=== PATIENT | female | born 1985 | race Caucasian/White ===

== ENCOUNTER 2020-09-17 08:00 | Day surgery (SDC) | payer OTHER ==
[2020-09-15 15:26] VITALS: BMI 31.5
[~2020-09-17 08:00] MED LIST: LACTATED RINGERS 1,000 ML IV SCH
[2020-09-17] MEDS ORDERED: LIDOCAINE 1% (10MG/ML) FOR IV START INTRADERMA ONE (08:58)
[2020-09-17] MEDS ORDERED: LIDOCAINE 1% INJ 10MG/ML (20 ML MDV) ONE (09:00)
[2020-09-17] MEDS ORDERED: PROPOFOL 10 MG/ML 20 ML VIAL IV ONE (09:00)
[2020-09-17 09:03] VITALS: TEMP 98.8
--- NOTE | 2020-09-17 09:32 | P.PCN ---
Date of Procedure: 09/17/20 Description of Procedure: BRIEF HISTORY: Patient is a 34-year-old female presenting for colonoscopy for evaluation of history of ulcerative colitis. She reports diagnosis of ulcerative colitis at the age of 18. She reports previously being treated with Remicade. She states she was unable to tolerate the medication due to abdominal pain. She reports over the past 10 years she has been off of any medications and states that she has been doing okay with no altered bowel movements blood per rectum or any other symptoms. PROCEDURE PERFORMED: Colonoscopy with biopsy. PREOPERATIVE DIAGNOSIS: History of ulcerative colitis. ESTIMATED BLOOD LOSS: Minimal. IV sedation per Anesthesia. PROCEDURE: After informed consent was obtained, the patient, was brought into the endoscopy unit. IV sedation was administered by Anesthesia under continuous monitoring. Digital rectal examination was normal. Initially the Olympus CF-190 flexible video colonoscope was then inserted in the rectum, gradually advanced into the cecum without any difficulty. Careful examination was performed as the scope was gradually being withdrawn. Ileocecal valve and the appendiceal orifice were visualized and appeared normal. Prep was excellent. Mucosa of the cecum, ascending colon, transverse colon, descending colon, sigmoid colon, and rectum appeared normal except for some mild scattered erythema throughout the colon consistent with mild ulcerative colitis with biopsies taken of the cecum, ascending colon, transverse colon, descending colon, sigmoid colon and rectum. The terminal ileum appeared normal with biopsies taken. Retroflexion was performed in the rectum and no lesions were seen. The patient tolerated the procedure well. IMPRESSION: Normal-appearing colon from rectum to cecum in normal-appearing terminal ileum, with only mild scattered erythema throughout the colon with random biopsies taken of the terminal ileum, cecum, ascending colon, transverse colon, descending colon, sigmoid colon and rectum. RECOMMENDATIONS: Findings of this examination were discussed with the patient and her family. Okay to resume diet. Okay to resume medications. Await pathology from biopsies. Follow up in the GI clinic as scheduled for further management.
[2020-09-17 09:39] VITALS: RESP 16
[2020-09-17 09:49] VITALS: BP 100/67; PULSE 67
== END 2020-09-17 10:05 | disposition home or self-care (01) ==
LOC: ORWHC2ENDO 08:00
PROVIDERS: ATTEND Internal Medicine
DX: K51.90 Ulcerative colitis, unspecified, without complications (principal); Z87.19 Personal history of other diseases of the digestive system
CPT/HCPCS: 81025; 88305; 45380; J2001; J2704

== ENCOUNTER → 2022-03-17 | Outpatient (CLI) | payer OTHER ==
[2022-03-17 15:25] LABS: Basophils # (A) 0.07 X 10*3/uL (0.00-0.10); Basophils % (A) 0.6 %; Eosinophils # (A) 0.18 X 10*3/uL (0.04-0.35); Eosinophils % (A) 1.5 %; HCT 35.3 % (37.2-46.3); HGB 11.3 g/dL (12.0-15.0); Immature Grans, Automated 0.9 %; Lymphocytes # (A) 1.77 X 10*3/uL (0.90-5.00); Lymphocytes % (A) 15.1 %; MCH 28.5 pg (27.0-32.0); MCV 89.1 fL (80.0-97.0); Mean Platelet Volume 10.1 fL (9.5-12.2); Monocytes # (A) 1.05 X 10*3/uL (0.20-1.00); NRBC Per 100 WBC 0 /100 WBCS (0.0-0.0); Neutrophils # (A) 8.54 X 10*3/uL (1.80-7.70); Neutrophils % (A) 72.9 %; Platelet Count 473 X 10*3/uL (140-440); RBC 3.96 X 10*6/uL (4.10-5.20); WBC 11.72 X 10*3/uL (4.50-10.00)
[2022-03-17 16:07] LABS: ALT 26 U/L (8-44); AST 18 U/L (13-35); African American GFR (CKD) 127.5 (60.0-200.0); Albumin 3.9 g/dL (3.8-4.9); Albumin/Globulin Ratio 1.55 (1.60-3.17); Alkaline Phosphatase 78 U/L (41-126); BUN/Creat Ratio 12.82 Ratio (12.00-20.00); Blood Urea Nitrogen 9.1 mg/dL (9.0-27.0); Calcium 8.8 mg/dL (8.7-10.3); Carbon Dioxide 25.3 mmol/L (20.0-27.5); Chloride 101 mmol/L (96-109); Globulin 2.5 g/dL (1.6-3.3); Glucose 125 mg/dL (70-110); Potassium 3.8 mmol/L (3.5-5.5); Sodium 140 mmol/L (135-145); Total Bilirubin <0.15 mg/dL (0.30-1.20); Total Protein 6.4 g/dL (6.2-8.2)
[2022-03-18 01:55] LABS: Erythrocyte Sedimentation Rate 39 mm/Hr (0-20)
== END | disposition home or self-care (01) ==
LOC: LABWHC1 10:30
PROVIDERS: ATTEND Internal Medicine Gastroenterology
DX: K51.90 Ulcerative colitis, unspecified, without complications (principal)
CPT/HCPCS: 36415; 80053; 85025; 85652; 86140

== ENCOUNTER 2022-03-19 02:50 | Emergency (ER) | payer OTHER ==
[2022-03-19 03:04] VITALS: TEMP 98.9
[2022-03-19] MEDS ORDERED: ONDANSETRON 4 MG/2 ML VIAL IVP STA (03:12)
[2022-03-19] MEDS ORDERED: SODIUM CHLORIDE 0.9% 1,000 ML IV STA (03:12)
[2022-03-19] MEDS ORDERED: MORPHINE SULFATE 4 MG/ML SYRINGE IVP STA (03:13)
--- NOTE | 2022-03-19 03:21 | ED ---
Abdominal Pain HPI - General Source: patient, RN notes reviewed Mode of arrival: ambulatory <Kailey Marie - Last Filed: 03/19/22 03:38> <Reji Garcia - Last Filed: 03/19/22 04:55> - General Chief Complaint: Abdominal Pain Stated Complaint: abd pain Time Seen by Provider: 03/19/22 03:06 - History of Present Illness Initial Comments: Patient is a 36-year-old female presenting to the emergency room with complaints of severe abdominal pain ongoing for approximately 2 weeks. She was recently seen by Dr. Keating who ordered blood work which she had completed on March 17 and placed her on steroids along with oral aminosalicylate. She reports no improvement in her symptoms on the oral medication treatment and rep orts that she is having nausea and vomiting with the inability to keep food or fluids down at this point. She reports chronic diarrhea with blood in her stool which is not new for her. She notes hot and cold flashes at times. She denies any hematemesis, chest pain, shortness of breath, dysuria, or urinary frequency. She denies any other significant past medical history with the exception of her ulcerative colitis. (Kailey Marie) - Related Data Home Medications Medication Instructions Recorded Confirmed Cholecalciferol [Vitamin D3 (25 50 mcg PO DAILY 09/15/20 09/15/20 Mcg = 1000 Iu)] Ferrous Sulfate [Feosol] 325 mg PO DAILY 09/15/20 09/15/20 Allergies Allergy/AdvReac Type Severity Reaction Status Date / Time amoxicillin trihydrate Allergy Unknown Verified 03/19/22 03:04 [From Augmentin] potassium clavulanate Allergy Unknown Verified 03/19/22 03:04 [From Augmentin] sulfamethoxazole Allergy Unknown Verified 03/19/22 03:04 [From Bactrim] trimethoprim [From Bactrim] Allergy Unknown Verified 03/19/22 03:04 Review of Systems ROS Other: All systems not noted in ROS Statement are negative. <Kailey Marie - Last Filed: 03/19/22 03:38> ROS Other: All systems not noted in ROS Statement are negative. <Reji Garcia - Last Filed: 03/19/22 04:55> ROS Statement: Those systems with pertinent positive or pertinent negative responses have been documented in the HPI. Past Medical History Additional Past Medical History / Comment(s): ULCERATIVE COLITIS History of Any Multi-Drug Resistant Organisms: None Reported Past Surgical History: Section, Ear Surgery, Tubal Ligation Additional Past Surgical History / Comment(s): colonoscopy Past Anesthesia/Blood Transfusion Reactions: No Reported Reaction Past Psychological History: Anxiety Smoking Status: Never smoker Past Alcohol Use History: None Reported Past Drug Use History: None Reported <Kailey Marie - Last Filed: 03/19/22 03:38> General Exam Limitations: no limitations <Kailey Marie - Last Filed: 03/19/22 03:38> General appearance: alert, in no apparent distress Head exam: Present: atraumatic, normocephalic, normal inspection Eye exam: Present: normal appearance, PERRL, EOMI. Absent: scleral icterus, conjunctival injection, periorbital swelling ENT exam: Present: normal exam, mucous membranes moist Neck exam: Present: normal inspection. Absent: tenderness, meningismus, lymphadenopathy Respiratory exam: Present: normal lung sounds bilaterally. Absent: respiratory distress, wheezes, rales, rhonchi, stridor Cardiovascular Exam: Present: regular rate, normal rhythm, normal heart sounds. Absent: systolic murmur, diastolic murmur, rubs, gallop, clicks GI/Abdominal exam: Present: soft, normal bowel sounds. Absent: distended, tend erness, guarding, rebound, rigid Extremities exam: Present: normal inspection, full ROM, normal capillary refill. Absent: tenderness, pedal edema, joint swelling, calf tenderness Back exam: Present: normal inspection Neurological exam: Present: alert, oriented X3, CN II-XII intact Psychiatric exam: Present: normal affect, normal mood Skin exam: Present: warm, dry, intact, normal color. Absent: rash <Reji Garcia - Last Filed: 03/19/22 04:55> - General Exam Comments Initial Comments: GENERAL: No acute distress, well developed, well nourished. In pain. HEENT: Normocephalic, atraumatic. Pupils equal, round, reactive to light. Moist mucous membranes. LUNGS: No respiratory distress. Clear to auscultation, no adventitious sounds, no use of accessory muscles. HEART: Regular rate and rhythm without murmur, rub, or gallop. ABDOMEN: Normal bowel sounds. Soft, nondistended, diffuse tenderness. : Urine concentrated. EXTREMITIES: No edema. No tenderness. Moves all extremities. NEUROLOGIC: Alert & oriented x 3. CN II-XII grossly intact. PSYCHIATRIC: Normal affect and behavior. DERMATOLOGIC: Skin intact, without rashes or lesions noted. (Kailey Marie) Course <Reji Garcia - Last Filed: 03/19/22 04:55> Vital Signs 03/19/22 03:01 Temperature 98.9 F Pulse Rate 93 Respiratory 18 Rate Blood Pressure 128/87 O2 Sat by Pulse 98 Oximetry - Reevaluation(s) Reevaluation #1: 03/19/22 04:54 Medical record is reviewed (Reji Garcia) Reevaluation #2: 03/19/22 04:54 Patient informed results and questions answered (Reji Garcia) Reevaluation #3: 03/19/22 04:54 Patient has adequate pain control (Reji Garcia) Medical Decision Making <Kailey Marie - Last Filed: 03/19/22 03:38> - Lab Data Result diagrams: 03/19/22 03:18 03/19/22 03:18 - Radiology Data Radiology results: report reviewed (CT of the abdomen and pelvis shows nonspecific colitis negative for acute disease), image reviewed <Reji Garcia - Last Filed: 03/19/22 04:55> - Medical Decision Making Was pt. sent in by a medical professional or institution (, PA, PRINTING MACHINE OPERATOR, urgent care, hospital, or long-term...) When possible be specific @ -No Did you speak to anyone other than the patient for history (EMS, parent, family, police, friend...)? What history was obtained from this source @ -No Did you review nursing and triage notes (agree or disagree)? Why? @ -I reviewed and agree with nursing and triage notes Were old charts reviewed (outside hosp., previous admission, EMS record, old EKG, old radiological studies, urgent care reports/EKG's, long-term records)? Report findings @ -Laboratory studies ordered by Dr. Keating resulted on 03/17/2021 Differential Diagnosis (chest pain, altered mental status, abdominal pain women, abdominal pain men, vaginal bleeding, weakness, fever, dyspnea, syncope, headache, dizziness, GI bleed, back pain, seizure, CVA, palpatations, mental health)? @ -Differential Abdominal Pain Women: Appendicitis, Cholecystitis, diverticulosis, ischemic bowel, pancreatitis, hepatitis, UTI, gastroenteritis, AAA, incarcerated hernia, bowel obstruction, constipation, inflammatory bowel, hepatitis, peptic ulcer disease, splenic infarction, perforated viscus, vulvitis, ovarian torsion, PID, kidney stone, placenta abruption, this is not meant to be an all-inclusive list EKG interpreted by me (3pts min.). @ -None done X-rays interpreted by me (1pt min.). @ -None done CT interpreted by me (1pt min.). @ - U/S interpreted by me (1pt. min.). @ -None done What testing was considered but not performed or refused? (CT, X-rays, U/S, labs)? Why? @ -None What meds were considered but not given or refused? Why? @ -None Did you discuss the management of the patient with other professionals (christo murray i.eNuria Verde, PA, PRINTING MACHINE OPERATOR, lab, RT, psych nurse, social media executive, anodic operator, teacher, flight communications officer, showcase maker)? Give summary @ -No Was smoking cessation discussed for >3mins.? @ -No Was critical care preformed (if so, how long)? @ -No Were there social determinants of health that impacted care today? How? (Homelessness, low income, unemployed, alcoholism, drug addiction, transportati on, low edu. Level, literacy, decrease access to med. care, nursing home, rehab)? @ -No Was there de-escalation of care discussed even if they declined (Discuss DNR or withdrawal of care, Hospice)? DNR status @ -No What co-morbidities impacted this encounter? (DM, HTN, Smoking, COPD, CAD, Cancer, CVA, ARF, Chemo, Hep., AIDS, mental health diagnosis, sleep apnea, morbid obesity)? @ -Ulcerative colitis Was patient admitted / discharged? Hospital course, mention meds given and route, prescriptions, significant lab abnormalities, going to OR and other pertinent info. @ -36-year-old female with diffuse abdominal pain with nausea vomiting diarrhea and bloody stools with history of ulcerative colitis currently on steroid treatment. Recent laboratory studies on 03/17/2021 reviewed. Will repeat CMP and CBC. No recent imaging completed will obtain CT of the abdomen. Will give IV hydration, morphine for pain and Zofran for nausea and monitor response. Case discussed with him transferred to Dr. Bearden for further evaluation, treatment and disposition. Undiagnosed new problem with uncertain prognosis? @ -Abdominal pain, nausea and vomiting workup still pending as above. Drug Therapy requiring intensive monitoring for toxicity (Heparin, Nitro, Insulin, Cardizem)? @ -No Were any procedures done? @ -No (Kailey Marie) 36 female DF for evaluation patient presents with abdominal pain history of Crohn's and Crohn's colitis. Patient at this time has adequate pain control can be discharged home (Reji Garcia) - Lab Data Lab Results 03/19/22 03/19/22 03/19/22 Range/Units 03:18 03:18 03:18 WBC 12.1 H (3.8-10.6) k/uL RBC 4.22 (3.80-5.40) m/uL Hgb 11.8 (11.4-16.0) gm/dL Hct 36.7 (34.0-46.0) % MCV 87.0 (80.0-100.0) fL MCH 28.0 (25.0-35.0) pg MCHC 32.2 (31.0-37.0) g/dL RDW 14.1 (11.5-15.5) % Plt Count 396 (150-450) k/uL MPV 7.9 Neutrophils % 69 % Lymphocytes % 18 % Monocytes % 9 % Eosinophils % 1 % Basophils % 1 % Neutrophils # 8.3 H (1.3-7.7) k/uL Lymphocytes # 2.1 (1.0-4.8) k/uL Monocytes # 1.1 H (0-1.0) k/uL Eosinophils # 0.1 (0-0.7) k/uL Basophils # 0.1 (0-0.2) k/uL Sodium (137-145) mmol/L Potassium (3.5-5.1) mmol/L Chloride (98-107) mmol/L Carbon Dioxide (22-30) mmol/L Anion Gap mmol/L BUN (7-17) mg/dL Creatinine (0.52-1.04) mg/dL Est GFR (CKD-EPI)AfAm (>60 ml/min/1.73 sqM) Est GFR (CKD-EPI)NonAf (>60 ml/min/1.73 sqM) Glucose (74-99) mg/dL Plasma Lactic Acid Asif (0.7-2.0) mmol/L Calcium (8.4-10.2) mg/dL Total Bilirubin (0.2-1.3) mg/dL AST (14-36) U/L ALT (4-34) U/L Alkaline Phosphatase (38-126) U/L Total Protein (6.3-8.2) g/dL Albumin (3.5-5.0) g/dL Amylase (30-110) U/L Lipase (23-300) U/L Urine Color Dark Brown Urine Appearance Cloudy H (Clear) Urine pH 6.0 (5.0-8.0) Ur Specific Nenzel 1.028 (1.001-1.035) Urine Protein 1+ H (Negative) Urine Glucose (UA) Negative (Negative) Urine Ketones 2+ H (Negative) Urine Blood Large H (Negative) Urine Nitrite Negative (Negative) Urine Bilirubin Negative (Negative) Urine Urobilinogen <2.0 (<2.0) mg/dL Ur Leukocyte Esterase Trace H (Negative) Urine RBC >182 H (0-5) /hpf Urine WBC 7 H (0-5) /hpf Ur Squamous Epith Cells 6 H (0-4) /hpf Urine Mucus Many H (None) /hpf Urine HCG, Qual Not Detected (Not Detectd) 03/19/22 03/19/22 Range/Units 03:18 03:18 WBC (3.8-10.6) k/uL RBC (3.80-5.40) m/uL Hgb (11.4-16.0) gm/dL Hct (34.0-46.0) % MCV (80.0-100.0) fL MCH (25.0-35.0) pg MCHC (31.0-37.0) g/dL RDW (11.5-15.5) % Plt Count (150-450) k/uL MPV Neutrophils % % Lymphocytes % % Monocytes % % Eosinophils % % Basophils % % Neutrophils # (1.3-7.7) k/uL Lymphocytes # (1.0-4.8) k/uL Monocytes # (0-1.0) k/uL Eosinophils # (0-0.7) k/uL Basophils # (0-0.2) k/uL Sodium 139 (137-145) mmol/L Potassium 3.5 (3.5-5.1) mmol/L Chloride 103 (98-107) mmol/L Carbon Dioxide 29 (22-30) mmol/L Anion Gap 7 mmol/L BUN 9 (7-17) mg/dL Creatinine 0.64 (0.52-1.04) mg/dL Est GFR (CKD-EPI)AfAm >90 (>60 ml/min/1.73 sqM) Est GFR (CKD-EPI)NonAf >90 (>60 ml/min/1.73 sqM) Glucose 104 H (74-99) mg/dL Plasma Lactic Acid Asif 1.0 (0.7-2.0) mmol/L Calcium 8.4 (8.4-10.2) mg/dL Total Bilirubin 0.3 (0.2-1.3) mg/dL AST 20 (14-36) U/L ALT 22 (4-34) U/L Alkaline Phosphatase 86 (38-126) U/L Total Protein 7.1 (6.3-8.2) g/dL Albumin 3.9 (3.5-5.0) g/dL Amylase 37 (30-110) U/L Lipase 15 L (23-300) U/L Urine Color Urine Appearance (Clear) Urine pH (5.0-8.0) Ur Specific Nenzel (1.001-1.035) Urine Protein (Negative) Urine Glucose (UA) (Negative) Urine Ketones (Negative) Urine Blood (Negative) Urine Nitrite (Negative) Urine Bilirubin (Negative) Urine Urobilinogen (<2.0) mg/dL Ur Leukocyte Esterase (Negative) Urine RBC (0-5) /hpf Urine WBC (0-5) /hpf Ur Squamous Epith Cells (0-4) /hpf Urine Mucus (None) /hpf Urine HCG, Qual (Not Detectd) Disposition <Kailey Marie - Last Filed: 03/19/22 03:38> Is patient prescribed a controlled substance at d/c from ED?: No Time of Disposition: 04:55 <Reji Garcia - Last Filed: 03/19/22 04:55> Clinical Impression: Abdominal pain, Colitis Disposition: HOME SELF-CARE Condition: Good Instructions (If sedation given, give patient instructions): Abdominal Pain (ED) Referrals: Gianna Romero DO [Primary Care Provider] - 1-2 days
[2022-03-19 03:43] LABS: ALT 22 U/L (4-34); AST 20 U/L (14-36); African American GFR (CKD) >90 (>60 ml/min/1.73 sqM); Albumin 3.9 g/dL (3.5-5.0); Alkaline Phosphatase 86 U/L (38-126); Amylase 37 U/L (30-110); Anion Gap 7 mmol/L; Blood Urea Nitrogen 9 mg/dL (7-17); Calcium 8.4 mg/dL (8.4-10.2); Carbon Dioxide 29 mmol/L (22-30); Chloride 103 mmol/L (98-107); Glucose 104 mg/dL (74-99); Lipase 15 U/L (23-300); Non-African American GFR(CKD) >90 (>60 ml/min/1.73 sqM); Potassium 3.5 mmol/L (3.5-5.1); Sodium 139 mmol/L (137-145); Total Bilirubin 0.3 mg/dL (0.2-1.3); Total Protein 7.1 g/dL (6.3-8.2)
[2022-03-19 03:57] LABS: Basophils # (A) 0.1 k/uL (0-0.2); Basophils % (A) 1 %; Eosinophils # (A) 0.1 k/uL (0-0.7); Eosinophils % (A) 1 %; HCT 36.7 % (34.0-46.0); HGB 11.8 gm/dL (11.4-16.0); Lymphocytes # (A) 2.1 k/uL (1.0-4.8); Lymphocytes % (A) 18 %; MCHC 32.2 g/dL (31.0-37.0); Mean Platelet Volume 7.9; Monocytes # (A) 1.1 k/uL (0-1.0); Monocytes % (A) 9 %; Neutrophils # (A) 8.3 k/uL (1.3-7.7); Neutrophils % (A) 69 %; Platelet Count 396 k/uL (150-450); RBC 4.22 m/uL (3.80-5.40); RDW 14.1 % (11.5-15.5); WBC 12.1 k/uL (3.8-10.6)
[2022-03-19 04:04] LABS: Appearance,Urine Cloudy (Clear); Bilirubin,Urine Negative (Negative); Blood,Urine Large (Negative); Color,Urine Dark Brown; Glucose,Urine (UA) Negative (Negative); Ketones,Urine 2+ (Negative); Leukocyte Esterase,Urine Trace (Negative); Mucus,Urine Many /hpf; Nitrite,Urine Negative (Negative); Protein,Urine 1+ (Negative); RBC,Urine >182 /hpf (0-5); Specific Gravity,Urine 1.028 (1.001-1.035); Squamous Epithelial Cell,Urine 6 /hpf (0-4); Urobilinogen,Urine <2.0 mg/dL (<2.0); WBC,Urine 7 /hpf (0-5)
--- NOTE | 2022-03-19 04:38 | CT ---
EXAMINATION TYPE: CT abdomen pelvis wo con DATE OF EXAM: 03/19/2022 COMPARISON: None HISTORY: epigastric pain with vomiting CT DLP: 600.9 mGycm Automated exposure control for dose reduction was used. Images obtained from the diaphragm to the floor the pelvis with no contrast. Lung bases are clear. No pleural effusion. Heart size is normal. No pericardial effusion. Liver spleen and stomach pancreas and gallbladder appear intact. The bile ducts are not dilated. There is no adrenal mass. Kidneys have normal size and contour. No hydronephrosis. Ureters are not di lated. The bladder distends smoothly. Uterus is anteverted. No pelvic mass. No free fluid in the pelv is. No inguinal hernia. There is some low-attenuation wall thickening of the large bowel. This is more noticeable in the desc ending colon and splenic flexure region. There is wall thickening and minimal adjacent mesenteric pro ma involving the sigmoid colon. The lumbar vertebrae have normal alignment. No compression fracture. Posterior elements are intact. B yulissa pelvis is intact. The hip joints are intact. There is no ascites or free air. No sign of a bowel obstruction. IMPRESSION: Large bowel wall thickening involving the left colon. This is suggestive of some nonspecific colitis. Colonic lipomatosis not excluded.
[2022-03-19] MEDS ORDERED: traMADol 50 MG STARTER PACK 3 TAB BTL PO STA (05:06)
[2022-03-19] MEDS ORDERED: ACET/COD 300 MG/30 MG STARTER PACK 6 TAB BTL PO STA (05:06)
[2022-03-19] MEDS ORDERED: ONDANSETRON 4 MG ODT STARTER PACK 2 TAB BTL PO STA (05:06)
[2022-03-19 05:17] VITALS: BP 111/62; PULSE 72; RESP 16
== END 2022-03-19 05:17 | disposition home or self-care (01) ==
LOC: SUPCPDRO 02:50 → EC 02:50
DX: K52.9 Noninfective gastroenteritis and colitis, unspecified (principal); F41.9 Anxiety disorder, unspecified; Z88.0 Allergy status to penicillin; Z88.2 Allergy status to sulfonamides; Z88.1 Allergy status to other antibiotic agents
CPT/HCPCS: 36415; 80053; 82150; 83605; 83690; 85025; 81001; 81025; 74176; 99284; 96374; 96375; 96361; J2270; J2405; S0119

== ENCOUNTER 2022-03-22 06:11 | Inpatient (IN) | payer OTHER ==
[2022-03-22] MEDS ORDERED: ONDANSETRON 4 MG/2 ML VIAL IVP STA (06:25)
[2022-03-22] MEDS ORDERED: KETOROLAC 15 MG/ML 1 ML VIAL IVP STA (06:25)
[2022-03-22] MEDS ORDERED: SODIUM CHLORIDE 0.9% 1,000 ML IV STA (06:25)
[2022-03-22] MEDS ORDERED: MORPHINE SULFATE 2 MG/ML SYRINGE IVP STA (06:26)
[2022-03-22] MEDS ORDERED: methylPREDNISolone SOD SUCCI 125 MG/2 ML VIAL IV STA (06:26)
--- NOTE | 2022-03-22 06:35 | ED ---
Abdominal Pain HPI - General Chief Complaint: Abdominal Pain Stated Complaint: Abdominal pain Time Seen by Provider: 03/22/22 06:15 Source: patient, RN notes reviewed Mode of arrival: ambulatory Limitations: no limitations - History of Present Illness Initial Comments: This is a 36-year-old female who presents to the emergency department for abdominal pain. Patient has a history of ulcerative colitis, however prior to the last month, she had not had a flareup in 12 years. She was evaluated here 3 days ago for her symptoms, which had been present for approximately 2 weeks at that time. She had recently been seen by Dr. Rashid, who started her on steroids and an oral aminoglycoside, which she has continued to take. She did not believe that those had been helpful, prompting her emergency department visit on 03/19. She continues to complain of chronic diarrhea with blood in it, which is not a new finding for her. States that she was given a Tylenol #3 starter pack on 03/19, which helped her get through the weekend. However, she called her [facility] provider and Dr. Rashid yesterday for a refill on this medication, and she states that none of these providers returned her calls. The pain has since continued to worsen with associated nausea and vomiting. Denies any blood in her vomit. States that she feels very dehydrated. The abdominal pain is described as very diffuse, however she states that when it usually occurs with a UC flare up, it is in the left lower quadrant. Denies any fevers, chills, sore throat, cough, dyspnea, chest pain, palpitations, back pain, or headaches. MD Complaint: abdominal pain Onset/Timin -: week(s) Location: diffuse Associated Symptoms: nausea, vomiting, diarrhea - Related Data Home Medications Medication Instructions Recorded Confirmed Cholecalciferol [Vitamin D3 (25 50 mcg PO DAILY 09/15/20 09/15/20 Mcg = 1000 Iu)] Ferrous Sulfate [Feosol] 325 mg PO DAILY 09/15/20 09/15/20 Allergies Allergy/AdvReac Type Severity Reaction Status Date / Time amoxicillin trihydrate Allergy Unknown Verified 03/22/22 06:14 [From Augmentin] potassium clavulanate Allergy Unknown Verified 03/22/22 06:14 [From Augmentin] sulfamethoxazole Allergy Unknown Verified 03/22/22 06:14 [From Bactrim] trimethoprim [From Bactrim] Allergy Unknown Verified 03/22/22 06:14 Review of Systems ROS Statement: Those systems with pertinent positive or pertinent negative responses have been documented in the HPI. ROS Other: All systems not noted in ROS Statement are negative. Past Medical History Additional Past Medical History / Comment(s): ulcerative colitis History of Any Multi-Drug Resistant Organisms: None Reported Past Surgical History: Section, Ear Surgery, Tubal Ligation Additional Past Surgical History / Comment(s): colonoscopy Past Anesthesia/Blood Transfusion Reactions: No Reported Reaction Past Psychological History: Anxiety Smoking Status: Never smoker Past Alcohol Use History: None Reported Past Drug Use History: None Reported General Exam Limitations: no limitations General appearance: alert, in distress Head exam: Present: atraumatic, normocephalic, normal inspection Respiratory exam: Present: normal lung sounds bilaterally. Absent: respiratory distress, wheezes, rales, rhonchi, stridor Cardiovascular Exam: Present: regular rate, normal rhythm, normal heart sounds. Absent: systolic murmur, diastolic murmur, rubs, gallop, clicks GI/Abdominal exam: Present: soft, tenderness (diffuse), normal bowel sounds. Absent: distended Neurological exam: Present: alert, oriented X3, CN II-XII intact Psychiatric exam: Present: normal affect, normal mood Skin exam: Present: warm, dry, intact, normal color. Absent: rash Course Vital Signs 03/22/22 03/22/22 06:14 07:53 Temperature 98.4 F Pulse Rate 115 H 89 Respiratory 16 18 Rate Blood Pressure 121/82 134/84 O2 Sat by Pulse 97 97 Oximetry Medical Decision Making - Medical Decision Making This is a 36-year-old female who presents to the emergency department for abdominal pain. Was pt. sent in by a medical professional or institution? @ -No Did you speak to anyone other than the patient for history? @ -No Did you review nursing and triage notes? @ -Agree, accurate with regards to the patient's symptoms. Were old charts reviewed? @ -CT scan of the abdomen/pelvis and lab work from 03/19. Differential Diagnosis? @ -Differential Abdominal Pain Women: Appendicitis, Cholecystitis, diverticulosis, ischemic bowel, pancreatitis, hepatitis, UTI, gastroenteritis, AAA, incarcerated hernia, bowel obstruction, constipation, inflammatory bowel, hepatitis, peptic ulcer disease, splenic infarction, perforated viscus, vulvitis, ovarian torsion, PID, kidney stone, placenta abruption, this is not meant to be an all-inclusive list. What testing was considered but not performed? (CT, X-rays, U/S, labs)? Why? @ -None What meds were considered but not given? Why? @ -None Did you discuss the management of the patient with other professionals? @ -Yes, Dr. Simmons who accepts the patient for admission. Did you reconcile home meds? @ -Yes Was smoking cessation discussed for >3mins.? @ -No Was critical care preformed (if so, how long)? @ -No Were there social determinants of health that impacted care today? How? (Homelessness, low income, unemployed, alcoholism, drug addiction, transportation, low edu. Level, literacy, decrease access to med. care, fci, rehab)? @ -No Was there de-escalation of care discussed even if they declined? (Discuss DNR or withdrawal of care, Hospice)? @ -No What co-morbidities impacted this encounter? (DM, HTN, Smoking, COPD, CAD, Cancer, CVA, Hep., AIDS, mental health diagnosis, sleep apnea, morbid obesity)? @ -Ulcerative colitis Was patient admitted / discharged? @ -While her abdominal pain is described as being diffuse, when I reviewed the computed tomography scan from 3 days ago, they did note the inflammation is localized to the left lower quadrant. She was given IV fluids, Toradol, Solu-Medrol, Zofran, and morphine, which substantially improved her symptoms. However, approximately 45 minutes later they returned. Repeat lab work obtained, revealing a significant elevation in inflammatory markers and her WBC count. Hypokalemia is also present, and she was subsequently given 30 mEq of K- Dur. Given the progressive symptoms with an increase in her white blood cell count and inflammatory markers, will admit to medicine for IV steroids and antibiotics. General surgery consulted for management as well. She was started on IV Flagyl and ceftriaxone. She was also given a loading dose of Solu-Medrol at 125 mg, scheduled dosing will be deferred to the admitting team. She did not have repeat imaging at this time due to the imaging she had here 3 days ago. Will defer the decision for repeat imaging to the admitting team as well. Undiagnosed new problem with uncertain prognosis? @ -None Drug Therapy requiring intensive monitoring for toxicity (Heparin, Nitro, Insulin, Cardizem)? @ -None Were any procedures done? @ -None Diagnosis/symptom? @ -Ulcerative colitis Acute, or Chronic, or Acute on Chronic? @ -Acute on chronic Uncomplicated (without systemic symptoms) or Complicated (systemic symptoms)? @ -Complicated Side effects of treatment? @ -None Exacerbation, Progression, or Severe Exacerbation] @ -Severe exacerbation Poses a threat to life or bodily function? @ -Yes This case was discussed in detail with the attending ED physician, Dr. Ponce. Presentation, findings, and treatment plan discussed in detail as well. - Lab Data Result diagrams: 03/22/22 06:43 03/22/22 06:43 Lab Results 03/22/22 03/22/22 03/22/22 Range/Units 06:43 06:43 06:43 WBC 16.9 H (3.8-10.6) k/uL RBC 4.17 (3.80-5.40) m/uL Hgb 11.7 (11.4-16.0) gm/dL Hct 35.5 (34.0-46.0) % MCV 85.0 (80.0-100.0) fL MCH 27.9 (25.0-35.0) pg MCHC 32.9 (31.0-37.0) g/dL RDW 13.8 (11.5-15.5) % Plt Count 522 H (150-450) k/uL MPV 6.7 Neutrophils % Not Reportable Neutrophils % (Manual) 68 % Band Neuts % (Manual) 4 % Lymphocytes % Not Reportable Lymphocytes % (Manual) 17 % Monocytes % Not Reportable Monocytes % (Manual) 7 % Eosinophils % Not Reportable Basophils % Not Reportable Metamyelocytes % 3 % Myelocytes % 2 % Neutrophils # Not Reportable Neutrophils # (Manual) 12.10 H (1.3-7.7) k/uL Lymphocytes # Not Reportable Lymphocytes # (Manual) 2.87 (1.0-4.8) k/uL Monocytes # Not Reportable Monocytes # (Manual) 1.18 H (0-1.0) k/uL Eosinophils # Not Reportable Basophils # Not Reportable Metamyelocytes # (Man) 0.51 H (0) k/uL Myelocytes # (Manual) 0.34 H (0) k/uL Nucleated RBCs 0 (0-0) /100 WBC Manual Slide Review Performed ESR Cancelled Sodium 138 (137-145) mmol/L Potassium 3.1 L (3.5-5.1) mmol/L Chloride 98 (98-107) mmol/L Carbon Dioxide 36 H (22-30) mmol/L Anion Gap 4 mmol/L BUN 6 L (7-17) mg/dL Creatinine 0.76 (0.52-1.04) mg/dL Est GFR (CKD-EPI)AfAm >90 (>60 ml/min/1.73 sqM) Est GFR (CKD-EPI)NonAf >90 (>60 ml/min/1.73 sqM) Glucose 104 H (74-99) mg/dL Plasma Lactic Acid Asif 0.9 (0.7-2.0) mmol/L Calcium 8.3 L (8.4-10.2) mg/dL Total Bilirubin 0.3 (0.2-1.3) mg/dL AST 19 (14-36) U/L ALT 14 (4-34) U/L Alkaline Phosphatase 88 (38-126) U/L C-Reactive Protein 8.3 H (<1.0) mg/dL Total Protein 6.4 (6.3-8.2) g/dL Albumin 3.5 (3.5-5.0) g/dL Amylase <30 L (30-110) U/L Lipase 11 L (23-300) U/L Urine Color Urine Appearance (Clear) Urine pH (5.0-8.0) Ur Specific [place] (1.001-1.035) Urine Protein (Negative) Urine Glucose (UA) (Negative) Urine Ketones (Negative) Urine Blood (Negative) Urine Nitrite (Negative) Urine Bilirubin (Negative) Urine Urobilinogen (<2.0) mg/dL Ur Leukocyte Esterase (Negative) Urine RBC (0-5) /hpf Urine WBC (0-5) /hpf Ur Squamous Epith Cells (0-4) /hpf Urine Bacteria (None) /hpf Hyaline Casts (0-2) /lpf Urine Mucus (None) /hpf Urine HCG, Qual (Not Detectd) 03/22/22 03/22/22 Range/Units 06:54 06:54 WBC (3.8-10.6) k/uL RBC (3.80-5.40) m/uL Hgb (11.4-16.0) gm/dL Hct (34.0-46.0) % MCV (80.0-100.0) fL MCH (25.0-35.0) pg MCHC (31.0-37.0) g/dL RDW (11.5-15.5) % Plt Count (150-450) k/uL MPV Neutrophils % Neutrophils % (Manual) % Band Neuts % (Manual) % Lymphocytes % Lymphocytes % (Manual) % Monocytes % Monocytes % (Manual) % Eosinophils % Basophils % Metamyelocytes % % Myelocytes % % Neutrophils # Neutrophils # (Manual) (1.3-7.7) k/uL Lymphocytes # Lymphocytes # (Manual) (1.0-4.8) k/uL Monocytes # Monocytes # (Manual) (0-1.0) k/uL Eosinophils # Basophils # Metamyelocytes # (Man) (0) k/uL Myelocytes # (Manual) (0) k/uL Nucleated RBCs (0-0) /100 WBC Manual Slide Review ESR Sodium (137-145) mmol/L Potassium (3.5-5.1) mmol/L Chloride (98-107) mmol/L Carbon Dioxide (22-30) mmol/L Anion Gap mmol/L BUN (7-17) mg/dL Creatinine (0.52-1.04) mg/dL Est GFR (CKD-EPI)AfAm (>60 ml/min/1.73 sqM) Est GFR (CKD-EPI)NonAf (>60 ml/min/1.73 sqM) Glucose (74-99) mg/dL Plasma Lactic Acid Asif (0.7-2.0) mmol/L Calcium (8.4-10.2) mg/dL Total Bilirubin (0.2-1.3) mg/dL AST (14-36) U/L ALT (4-34) U/L Alkaline Phosphatase (38-126) U/L C-Reactive Protein (<1.0) mg/dL Total Protein (6.3-8.2) g/dL Albumin (3.5-5.0) g/dL Amylase (30-110) U/L Lipase (23-300) U/L Urine Color Dark Yellow Urine Appearance Cloudy H (Clear) Urine pH 6.5 (5.0-8.0) Ur Specific [place] 1.025 (1.001-1.035) Urine Protein 1+ H (Negative) Urine Glucose (UA) Negative (Negative) Urine Ketones 2+ H (Negative) Urine Blood Large H (Negative) Urine Nitrite Negative (Negative) Urine Bilirubin 1+ H (Negative) Urine Urobilinogen <2.0 (<2.0) mg/dL Ur Leukocyte Esterase Negative (Negative) Urine RBC 5 (0-5) /hpf Urine WBC 6 H (0-5) /hpf Ur Squamous Epith Cells 5 H (0-4) /hpf Urine Bacteria Rare H (None) /hpf Hyaline Casts 3 H (0-2) /lpf Urine Mucus Few H (None) /hpf Urine HCG, Qual Not Detected (Not Detectd) Disposition Clinical Impression: Ulcerative colitis, acute Disposition: ADMITTED IP TO THIS HOSP Referrals: Gianna Romero DO [Primary Care Provider] - 1-2 days
[2022-03-22 06:57] LABS: HCT 35.5 % (34.0-46.0); HGB 11.7 gm/dL (11.4-16.0); MCH 27.9 pg (25.0-35.0); MCHC 32.9 g/dL (31.0-37.0); Mean Platelet Volume 6.7; Platelet Count 522 k/uL (150-450); RBC 4.17 m/uL (3.80-5.40); RDW 13.8 % (11.5-15.5); WBC 16.9 k/uL (3.8-10.6)
[2022-03-22 07:06] LABS: ALT 14 U/L (4-34); AST 19 U/L (14-36); African American GFR (CKD) >90 (>60 ml/min/1.73 sqM); Albumin 3.5 g/dL (3.5-5.0); Alkaline Phosphatase 88 U/L (38-126); Amylase <30 U/L (30-110); Anion Gap 4 mmol/L; Blood Urea Nitrogen 6 mg/dL (7-17); C Reactive Protein 8.3 mg/dL (<1.0); Calcium 8.3 mg/dL (8.4-10.2); Carbon Dioxide 36 mmol/L (22-30); Chloride 98 mmol/L (98-107); Glucose 104 mg/dL (74-99); Lipase 11 U/L (23-300); Non-African American GFR(CKD) >90 (>60 ml/min/1.73 sqM); Potassium 3.1 mmol/L (3.5-5.1); Sodium 138 mmol/L (137-145); Total Bilirubin 0.3 mg/dL (0.2-1.3); Total Protein 6.4 g/dL (6.3-8.2)
[2022-03-22 07:11] LABS: Appearance,Urine Cloudy (Clear); Bacteria,Urine Rare /hpf; Bilirubin,Urine 1+ (Negative); Blood,Urine Large (Negative); Color,Urine Dark Yellow; Glucose,Urine (UA) Negative (Negative); Hyaline Casts,Urine 3 /lpf (0-2); Ketones,Urine 2+ (Negative); Leukocyte Esterase,Urine Negative (Negative); Mucus,Urine Few /hpf; Nitrite,Urine Negative (Negative); PH, Urine 6.5 (5.0-8.0); Protein,Urine 1+ (Negative); RBC,Urine 5 /hpf (0-5); Specific Gravity,Urine 1.025 (1.001-1.035); Squamous Epithelial Cell,Urine 5 /hpf (0-4); Urobilinogen,Urine <2.0 mg/dL (<2.0); WBC,Urine 6 /hpf (0-5)
[2022-03-22] MEDS ORDERED: POTASSIUM CHLORIDE ER 10 MEQ TAB.ER.PRT PO STA (07:18)
[2022-03-22] MEDS ORDERED: IBUPROFEN 400 MG TAB PO PRN (07:52)
[2022-03-22] MEDS ORDERED: ACETAMINOPHEN TAB 325 MG TAB PO PRN (07:52)
[2022-03-22] MEDS ORDERED: NALOXONE 0.4 MG/ML 1 ML VIAL IV PRN (07:52)
[2022-03-22 07:53] LABS: Band Neutrophils % 4 %; Lymphocytes # (M) 2.87 k/uL (1.0-4.8); Metamyelocytes # (M) 0.51 k/uL (0); Metamyelocytes % 3 %; Monocytes # (M) 1.18 k/uL (0-1.0); Myelocytes # (M) 0.34 k/uL (0); Myelocytes % 2 %; Neutrophils % (M) 68 %; Nucleated Red Blood Cells 0 /100 WBC (0-0); Total Cells Counted 200
[2022-03-22] MEDS ORDERED: cefTRIAXone IN SWFI 1,000 MG/10 ML SYRINGE IVP SCH (07:55)
[2022-03-22] MEDS: HYDROmorphone 0.5 MG/0.5 ML SYRINGE IVP PRN ×3 (08:20→21:55)
[2022-03-22] MEDS: PANTOPRAZOLE 40 MG/10 ML VIAL IV SCH (08:23)
[2022-03-22] MEDS: SODIUM CHLORIDE 0.9% 1,000 ML IV SCH ×2 (08:26→21:55)
[2022-03-22] MEDS: methylPREDNISolone SOD SUCCI 40 MG/ML 1 ML VIAL IV SCH ×3 (08:48→21:56)
[2022-03-22] MEDS: metroNIDAZOLE-NS PMX 500 MG in SALINE 1 100ML.BAG IVPB SCH ×3 (09:15→23:29)
[2022-03-22] MEDS ORDERED: Potassium Replacement Protocol 1 EACH MISC MISCELLANE PRN (10:54)
[2022-03-22] MEDS: ONDANSETRON 4 MG/2 ML VIAL IVP PRN ×2 (13:47→21:55)
--- NOTE | 2022-03-22 14:35 | P.HPIM ---
History of Present Illness H&P Date: 03/22/22 Chief Complaint: Worsening abdominal pain, bloody diarrhea This is a 36-year-old female in a return to the ER with worsening abdominal pain, bloody diarrhea in a patient with history of ulcerative colitis. Patient reports, she initially was treated in [place] for her ulcerative colitis with last flareup 12 years ago and had been managing with diet alone. Recently had se en GI specialist, Dr. Rashid who ordered labs and started patient on both steroids and oral aminoglycosides, minimal improvement.Patient presented to the ER, initially on 03/19/2022 with similar symptoms, and discharged home on Tylenol #3. Patient returned to the ER as she ran out of her pain medication, worsening symptoms. Reports on no diet intake 5 days; platelets of food, including Pedialyte causes nausea and vomiting. Reporting diarrhea every hour, sometimes bloody. States she has been under a lot of stress at work plus moving and has not been eating well over the last 2 weeks. Afebrile, WBC 16.9, hemoglobin 11.7, platelets 522, potassium 3.1, BUN 6. Creatinine 0.70, magnesium 2. CRP 8.3, ESR 45( both increased from prior labs on the ) .amylase less than 30, lipase 11. UA negative. IV fluid hydration, antibiotics and steroids initiated. No GI services available this week, Surgery consult in place. Review of Systems ROS Statement: Those systems with pertinent positive or pertinent negative responses have been documented in the HPI. ROS Other: All systems not noted in ROS Statement are negative. Past Medical History Additional Past Medical History / Comment(s): ulcerative colitis History of Any Multi-Drug Resistant Organisms: None Reported Past Surgical History: Section, Ear Surgery, Tubal Ligation Additional Past Surgical History / Comment(s): colonoscopy Past Anesthesia/Blood Transfusion Reactions: No Reported Reaction Past Psychological History: Anxiety Smoking Status: Never smoker Past Alcohol Use History: None Reported Past Drug Use History: None Reported Medications and Allergies Home Medications Medication Instructions Recorded Confirmed Type Balsalazide Disodium 2,250 mg PO TID 03/22/22 03/22/22 History predniSONE See Taper PO DIRECTED 03/22/22 03/22/22 History Allergies Allergy/AdvReac Type Severity Reaction Status Date / Time amoxicillin trihydrate Allergy Rash/Hives Verified 03/22/22 08:29 [From Augmentin] potassium clavulanate Allergy Rash/Hives Verified 03/22/22 08:29 [From Augmentin] sulfamethoxazole Allergy Rash/Hives Verified 03/22/22 08:29 [From Bactrim] trimethoprim [From Bactrim] Allergy Rash/Hives Verified 03/22/22 08:29 Physical Exam Vitals: Vital Signs Temp Pulse Resp BP Pulse Ox 03/22/22 07:53 89 18 134/84 97 03/22/22 06:14 98.4 F 115 H 16 121/82 97 Intake and Output 03/21/22 03/22/22 03/22/22 22:59 06:59 14:59 Other: Weight 76.657 kg PHYSICAL EXAM: VITAL SIGNS: [As above] GENERAL: Sitting up on stretcher, no acute distress HEENT: Conjunctivae normal. eyes normal. NECK: Supple, No JVD. No thyroid enlargement. No LNs CARDIOVASCULAR: S1, S2 regular.. No murmur RESPIRATION: Breath sounds diminished in the bases. No rhonchi or crackles. No bronchial breathing. ABDOMEN: Soft, nondistended, diffuse tenderness . No guarding. no masses pa lpable. No ascites, No hepatosplenomegaly.Bowel sounds heard. LEGS: No edema. no swelling PSYCHIATRY: Alert and oriented X3, mood and affect normal. NERVOUS SYSTEM: Cranial N 2-12 grossly normal. No focal deficits. Strength and sensation grossly intact. Skin: no lesions, no rash Results CBC & Chem 7: 03/22/22 06:43 03/22/22 06:43 Labs: Abnormal Lab Results - Last 24 Hours (Table) 03/22/22 03/22/22 03/22/22 Range/Units 06:43 06:43 06:54 WBC 16.9 H (3.8-10.6) k/uL Plt Count 522 H (150-450) k/uL Neutrophils # (Manual) 12.10 H (1.3-7.7) k/uL Monocytes # (Manual) 1.18 H (0-1.0) k/uL Metamyelocytes # (Man) 0.51 H (0) k/uL Myelocytes # (Manual) 0.34 H (0) k/uL ESR (0-20) mm/hr Potassium 3.1 L (3.5-5.1) mmol/L Carbon Dioxide 36 H (22-30) mmol/L BUN 6 L (7-17) mg/dL Glucose 104 H (74-99) mg/dL Calcium 8.3 L (8.4-10.2) mg/dL C-Reactive Protein 8.3 H (<1.0) mg/dL Amylase <30 L (30-110) U/L Lipase 11 L (23-300) U/L Urine Appearance Cloudy H (Clear) Urine Protein 1+ H (Negative) Urine Ketones 2+ H (Negative) Urine Blood Large H (Negative) Urine Bilirubin 1+ H (Negative) Urine WBC 6 H (0-5) /hpf Ur Squamous Epith Cells 5 H (0-4) /hpf Urine Bacteria Rare H (None) /hpf Hyaline Casts 3 H (0-2) /lpf Urine Mucus Few H (None) /hpf 03/22/22 Range/Units 08:27 WBC (3.8-10.6) k/uL Plt Count (150-450) k/uL Neutrophils # (Manual) (1.3-7.7) k/uL Monocytes # (Manual) (0-1.0) k/uL Metamyelocytes # (Man) (0) k/uL Myelocytes # (Manual) (0) k/uL ESR 45 H (0-20) mm/hr Potassium (3.5-5.1) mmol/L Carbon Dioxide (22-30) mmol/L BUN (7-17) mg/dL Glucose (74-99) mg/dL Calcium (8.4-10.2) mg/dL C-Reactive Protein (<1.0) mg/dL Amylase (30-110) U/L Lipase (23-300) U/L Urine Appearance (Clear) Urine Protein (Negative) Urine Ketones (Negative) Urine Blood (Negative) Urine Bilirubin (Negative) Urine WBC (0-5) /hpf Ur Squamous Epith Cells (0-4) /hpf Urine Bacteria (None) /hpf Hyaline Casts (0-2) /lpf Urine Mucus (None) /hpf Assessment and Plan Assessment: Abdominal pain with bloody diarrhea in a patient with acute suspected ulcerative colitis in a patient with history of Ulcerative colitis. Anxiety Plan: Continue on current medication regime ,monitoring and symptomatic treatment. IV antibiotics steroids and gentle IV fluid hydration. General surgery consult in place, recommendations pending. Pain management. The impression and plan of care has been dictated as directed. : I performed a history and examination of this patient, discussed the same with the dictator. I agree with the dictator's note ,documented as a scribe. Any additional findings or plans will be noted.
[2022-03-22 16:06] LABS: ALT 13 U/L (4-34); AST 18 U/L (14-36); African American GFR (CKD) >90 (>60 ml/min/1.73 sqM); Albumin 3.1 g/dL (3.5-5.0); Albumin/Globulin Ratio 1.1; Alkaline Phosphatase 77 U/L (38-126); Anion Gap 6 mmol/L; Blood Urea Nitrogen 8 mg/dL (7-17); Calcium 7.8 mg/dL (8.4-10.2); Carbon Dioxide 31 mmol/L (22-30); Chloride 101 mmol/L (98-107); Globulin 2.7 g/dL; Glucose 130 mg/dL (74-99); Non-African American GFR(CKD) >90 (>60 ml/min/1.73 sqM); Potassium 4.2 mmol/L (3.5-5.1); Sodium 138 mmol/L (137-145); Total Bilirubin 0.2 mg/dL (0.2-1.3); Total Protein 5.8 g/dL (6.3-8.2)
--- NOTE | 2022-03-22 16:28 | P.GSCN ---
History of Present Illness Consult date: 03/22/22 History of present illness: CHIEF COMPLAINT: Abdominal pain HISTORY OF PRESENT ILLNESS: This is a 36-year-old female with a known history of ulcerative colitis diagnosed at age 18. Patient has gone 12 years without any flareups. On March 06 patient started to have abdominal pain with cramping and bloody stools. Patient was able to be seen by Dr. Keating and was started on prednisone this past Monday. Patient reports no improvement with the prednisone. Therefore she came into the ER for further evaluation. Her white count was elevated at 16. Due to the pain she has been having some nausea and vomiting. Last colonoscopy was September [address] Bowens showing a normal- appearing colon from rectum to cecum with only mild scattered erythema throughout the colon with random biopsies taken. Patient seen and examined with Dr. comlenares PAST MEDICAL HISTORY: See below PAST SURGICAL HISTORY: See below MEDICATIONS: See below ALLERGIES: See below SOCIAL HISTORY: No illicit drug use. REVIEW OF SYSTEMS: CONSTITUTIONAL: Denies fever or chills. HEENT: Denies blurred vision, vision changes, or eye pain. Denies hemoptysis CARDIOVASCULAR: Denies chest pain or pressure. RESPIRATORY: No shortness of breath. GASTROINTESTINAL: See HPI for pertinent findings HEMATOLOGIC: Denies bleeding disorders. GENITOURINARY: Denies any blood in urine or increased urinary frequency. SKIN: Denies pruitis. Denies rash. PHYSICAL EXAM: VITAL SIGNS: Reviewed GENERAL: Well-developed in no acute distress. HEENT: No sclera icterus. Extraocular movements grossly intact. Moist buccal mucosa. Head is atraumatic, normocephalic. No nasal drainage. ABDOMEN: Soft. Nondistended. Tenderness lower abdomen NEUROLOGIC: Alert and oriented. Cranial nerves II through XII grossly intact. LABORATORY DATA: WBC is 16.9 HP 11.7 platelets 522 Sed rate 45 Sodium is 138 potassium 4.2 creatinine 0.65 IMAGING: ASSESSMENT: 1. Ulcerative colitis exacerbation PLAN: -Agree with steroids and antibiotics -Continue supportive care -Continue medical management -No surgical intervention planned Physician Neurosurgical Nurse note has been reviewed by physician. Signing provider agrees with the documented findings, assessment, and plan of care. Past Medical History Additional Past Medical History / Comment(s): ulcerative colitis History of Any Multi-Drug Resistant Organisms: None Reported Past Surgical History: Section, Ear Surgery, Tubal Ligation Additional Past Surgical History / Comment(s): colonoscopy Past Anesthesia/Blood Transfusion Reactions: No Reported Reaction Past Psychological History: Anxiety Smoking Status: Never smoker Past Alcohol Use History: None Reported Past Drug Use History: None Reported Medications and Allergies Home Medications Medication Instructions Recorded Confirmed Type Balsalazide Disodium 2,250 mg PO TID 03/22/22 03/22/22 History predniSONE See Taper PO DIRECTED 03/22/22 03/22/22 History Allergies Allergy/AdvReac Type Severity Reaction Status Date / Time amoxicillin trihydrate Allergy Rash/Hives Verified 03/22/22 08:29 [From Augmentin] potassium clavulanate Allergy Rash/Hives Verified 03/22/22 08:29 [From Augmentin] sulfamethoxazole Allergy Rash/Hives Verified 03/22/22 08:29 [From Bactrim] trimethoprim [From Bactrim] Allergy Rash/Hives Verified 03/22/22 08:29 Surgical - Exam Vital Signs Temp Pulse Resp BP Pulse Ox 98.4 F 115 H 16 121/82 97 03/22/22 06:14 03/22/22 06:14 03/22/22 06:14 03/22/22 06:14 03/22/22 06:14 Results - Labs 03/22/22 06:43 03/22/22 15:12 Abnormal Lab Results - Last 24 Hours (Table) 03/22/22 03/22/22 03/22/22 Range/Units 06:43 06:43 06:54 WBC 16.9 H (3.8-10.6) k/uL Plt Count 522 H (150-450) k/uL Neutrophils # (Manual) 12.10 H (1.3-7.7) k/uL Monocytes # (Manual) 1.18 H (0-1.0) k/uL Metamyelocytes # (Man) 0.51 H (0) k/uL Myelocytes # (Manual) 0.34 H (0) k/uL ESR (0-20) mm/hr Potassium 3.1 L (3.5-5.1) mmol/L Carbon Dioxide 36 H (22-30) mmol/L BUN 6 L (7-17) mg/dL Glucose 104 H (74-99) mg/dL Calcium 8.3 L (8.4-10.2) mg/dL C-Reactive Protein 8.3 H (<1.0) mg/dL Amylase <30 L (30-110) U/L Lipase 11 L (23-300) U/L Urine Appearance Cloudy H (Clear) Urine Protein 1+ H (Negative) Urine Ketones 2+ H (Negative) Urine Blood Large H (Negative) Urine Bilirubin 1+ H (Negative) Urine WBC 6 H (0-5) /hpf Ur Squamous Epith Cells 5 H (0-4) /hpf Urine Bacteria Rare H (None) /hpf Hyaline Casts 3 H (0-2) /lpf Urine Mucus Few H (None) /hpf 03/22/22 Range/Units 08:27 WBC (3.8-10.6) k/uL Plt Count (150-450) k/uL Neutrophils # (Manual) (1.3-7.7) k/uL Monocytes # (Manual) (0-1.0) k/uL Metamyelocytes # (Man) (0) k/uL Myelocytes # (Manual) (0) k/uL ESR 45 H (0-20) mm/hr Potassium (3.5-5.1) mmol/L Carbon Dioxide (22-30) mmol/L BUN (7-17) mg/dL Glucose (74-99) mg/dL Calcium (8.4-10.2) mg/dL C-Reactive Protein (<1.0) mg/dL Amylase (30-110) U/L Lipase (23-300) U/L Urine Appearance (Clear) Urine Protein (Negative) Urine Ketones (Negative) Urine Blood (Negative) Urine Bilirubin (Negative) Urine WBC (0-5) /hpf Ur Squamous Epith Cells (0-4) /hpf Urine Bacteria (None) /hpf Hyaline Casts (0-2) /lpf Urine Mucus (None) /hpf Diabetes panel 03/22/22 Range/Units 06:43 Sodium 138 (137-145) mmol/L Potassium 3.1 L (3.5-5.1) mmol/L Chloride 98 (98-107) mmol/L Carbon Dioxide 36 H (22-30) mmol/L BUN 6 L (7-17) mg/dL Creatinine 0.76 (0.52-1.04) mg/dL Glucose 104 H (74-99) mg/dL Calcium 8.3 L (8.4-10.2) mg/dL AST 19 (14-36) U/L ALT 14 (4-34) U/L Alkaline Phosphatase 88 (38-126) U/L Total Protein 6.4 (6.3-8.2) g/dL Albumin 3.5 (3.5-5.0) g/dL Calcium panel 03/22/22 Range/Units 06:43 Calcium 8.3 L (8.4-10.2) mg/dL Albumin 3.5 (3.5-5.0) g/dL Pituitary panel 03/22/22 Range/Units 06:43 Sodium 138 (137-145) mmol/L Potassium 3.1 L (3.5-5.1) mmol/L Chloride 98 (98-107) mmol/L Carbon Dioxide 36 H (22-30) mmol/L BUN 6 L (7-17) mg/dL Creatinine 0.76 (0.52-1.04) mg/dL Glucose 104 H (74-99) mg/dL Calcium 8.3 L (8.4-10.2) mg/dL Adrenal panel 03/22/22 Range/Units 06:43 Sodium 138 (137-145) mmol/L Potassium 3.1 L (3.5-5.1) mmol/L Chloride 98 (98-107) mmol/L Carbon Dioxide 36 H (22-30) mmol/L BUN 6 L (7-17) mg/dL Creatinine 0.76 (0.52-1.04) mg/dL Glucose 104 H (74-99) mg/dL Calcium 8.3 L (8.4-10.2) mg/dL Total Bilirubin 0.3 (0.2-1.3) mg/dL AST 19 (14-36) U/L ALT 14 (4-34) U/L Alkaline Phosphatase 88 (38-126) U/L Total Protein 6.4 (6.3-8.2) g/dL Albumin 3.5 (3.5-5.0) g/dL
[2022-03-22] MEDS: HYDROmorphone 1 MG/ML 1 ML SYRINGE IVP PRN (22:01)
[2022-03-23] MEDS: HYDROmorphone 1 MG/ML 1 ML SYRINGE IVP PRN ×6 (01:01→22:59)
[2022-03-23 06:26] LABS: ALT 11 U/L (4-34); AST 14 U/L (14-36); African American GFR (CKD) >90 (>60 ml/min/1.73 sqM); Albumin 2.9 g/dL (3.5-5.0); Albumin/Globulin Ratio 1.1; Alkaline Phosphatase 72 U/L (38-126); Anion Gap 3 mmol/L; Blood Urea Nitrogen 8 mg/dL (7-17); Calcium 7.5 mg/dL (8.4-10.2); Carbon Dioxide 32 mmol/L (22-30); Chloride 101 mmol/L (98-107); Globulin 2.6 g/dL; Glucose 135 mg/dL (74-99); HCT 33.4 % (34.0-46.0); HGB 10.5 gm/dL (11.4-16.0); MCH 28.1 pg (25.0-35.0); MCHC 31.4 g/dL (31.0-37.0); MCV 89.5 fL (80.0-100.0); Mean Platelet Volume 7.1; Non-African American GFR(CKD) >90 (>60 ml/min/1.73 sqM); Platelet Count 466 k/uL (150-450); Potassium 4.6 mmol/L (3.5-5.1); RBC 3.73 m/uL (3.80-5.40); RDW 14.3 % (11.5-15.5); Sodium 136 mmol/L (137-145); Total Bilirubin 0.2 mg/dL (0.2-1.3); Total Protein 5.5 g/dL (6.3-8.2)
[2022-03-23] MEDS: HYDROmorphone 0.5 MG/0.5 ML SYRINGE IVP PRN (06:52)
[2022-03-23] MEDS: ONDANSETRON 4 MG/2 ML VIAL IVP PRN (06:52)
[2022-03-23] MEDS: PANTOPRAZOLE 40 MG/10 ML VIAL IV SCH (08:27)
[2022-03-23] MEDS: methylPREDNISolone SOD SUCCI 40 MG/ML 1 ML VIAL IV SCH ×3 (08:27→23:00)
[2022-03-23] MEDS: metroNIDAZOLE-NS PMX 500 MG in SALINE 1 100ML.BAG IVPB SCH ×3 (08:27→23:00)
[2022-03-23] MEDS: SODIUM CHLORIDE 0.9% 1,000 ML IV SCH ×2 (08:30→20:00)
--- NOTE | 2022-03-23 13:22 | P.PN ---
Subjective Progress Note Date: 03/23/22 CHIEF COMPLAINT: Ulcerative colitis exacerbation HISTORY OF PRESENT ILLNESS: Patient continues to have bloody diarrhea. Pain is about the same. She describes her pain as a raw type sensation in her abdomen. Denies any nausea or vomiting. Currently on a clear liquid diet. Afebrile. WBC 16 hemoglobin decreased from 11.7-10.5 plt 466 PHYSICAL EXAM: VITAL SIGNS: Reviewed. GENERAL: Well-developed in no acute distress. HEENT: No sclera icterus. Extraocular movements grossly intact. Moist buccal mucosa. Head is atraumatic, normocephalic. ABDOMEN: Soft. mildly distended NEUROLOGIC: Alert and oriented. Cranial nerves II through XII grossly intact. ASSESSMENT: 1. Ulcerative colitis exacerbation PLAN: -Continue supportive care -Continue medical management -Continue IV steroids -Medicine service has advanced diet to low fiber -No surgical intervention planned Physician Propagator note has been reviewed by physician. Signing provider agrees with the documented findings, assessment, and plan of care. Objective - Vital Signs Vital signs: Vital Signs Temp 97.8 F 03/23/22 08:00 Pulse 63 03/23/22 08:00 Resp 18 03/23/22 08:00 BP 115/68 03/23/22 08:00 Pulse Ox 98 03/23/22 08:00 FiO2 Intake & Output 03/22/22 03/23/22 03/23/22 18:59 06:59 18:59 Intake Total 118 120 Balance 118 120 Weight 76.657 kg Intake: Oral 118 120 Other: Voiding Method Toilet # Voids 3 1 # Bowel Movements 2 - Labs CBC & Chem 7: 03/23/22 05:42 03/23/22 05:42 Labs: Abnormal Lab Results - Last 24 Hours (Table) 03/22/22 03/23/22 03/23/22 Range/Units 15:12 05:42 05:42 WBC 16.0 H (3.8-10.6) k/uL RBC 3.73 L (3.80-5.40) m/uL Hgb 10.5 L (11.4-16.0) gm/dL Hct 33.4 L (34.0-46.0) % Plt Count 466 H (150-450) k/uL Sodium 136 L (137-145) mmol/L Carbon Dioxide 31 H 32 H (22-30) mmol/L Glucose 130 H 135 H (74-99) mg/dL Calcium 7.8 L 7.5 L (8.4-10.2) mg/dL Total Protein 5.8 L 5.5 L (6.3-8.2) g/dL Albumin 3.1 L 2.9 L (3.5-5.0) g/dL
[2022-03-23 14:16] LABS: Lymphocytes # (M) 1.12 k/uL (1.0-4.8); Nucleated Red Blood Cells 0 /100 WBC (0-0)
[2022-03-23 14:19] LABS: Band Neutrophils % 24 %; Metamyelocytes # (M) 0.48 k/uL (0); Metamyelocytes % 3 %; Monocytes # (M) 0.48 k/uL (0-1.0); Myelocytes # (M) 0.32 k/uL (0); Myelocytes % 2 %; Neutrophils % (M) 62 %; Total Cells Counted 200
[2022-03-23 14:20] LABS: Anisocytosis (M) Present; Poikilocytosis (M) Present; Polychromasia Present; Toxic Granulation Present
--- NOTE | 2022-03-23 15:55 | P.PN ---
Subjective Progress Note Date: 03/23/22 H&P Date: 03/22/22 Chief Complaint: Worsening abdominal pain, bloody diarrhea This is a 36-year-old female in a return to the ER with worsening abdominal cheng n, bloody diarrhea in a patient with history of ulcerative colitis. Patient reports, she initially was treated in [place] for her ulcerative colitis with last flareup 12 years ago and had been managing with diet alone. Recently had seen GI specialist, Dr. Rashid who ordered labs and started patient on both steroids and oral aminoglycosides, minimal improvement.Patient presented to the ER, initially on 03/19/2022 with similar symptoms, and discharged home on Tylenol #3. Patient returned to the ER as she ran out of her pain medication, worsening symptoms. Reports on no diet intake 5 days; platelets of food, including Pedialyte causes nausea and vomiting. Reporting diarrhea every hour, sometimes bloody. States she has been under a lot of stress at work plus moving and has not been eating well over the last 2 weeks. Afebrile, WBC 16.9, hemoglobin 11.7, platelets 522, potassium 3.1, BUN 6. Creatinine 0.70, magnesium 2. CRP 8.3, ESR 45( both increased from prior labs on the ) . amylase less than 30, lipase 11. UA negative. IV fluid hydration, antibiotics and steroids initiated. No GI services available this week, Surgery consult in place. 03/23/2022 continues on ceftriaxone, IV steroids. Reports abdominal pain last night, none this morning. Reports less bloody watery diarrhea last night, none this morning. Tolerating clear liquid diet this morning with no abdominal cramping, no nausea, no vomiting. Requesting diet advancement. Afebrile, WBC decreased to 16. Hemoglobin 10.5, platelets 466, bicarb 32 renal function stable. Blood sugars controlled. Evaluated by surgery with no surgical intervention planned. Objective - Vital Signs Vital signs: Vital Signs Temp 97.8 F 03/23/22 08:00 Pulse 63 03/23/22 08:00 Resp 18 03/23/22 08:00 BP 115/68 03/23/22 08:00 Pulse Ox 98 03/23/22 08:00 FiO2 Intake & Output 03/22/22 03/23/22 03/23/22 18:59 06:59 18:59 Intake Total 118 120 Balance 118 120 Weight 76.657 kg Intake: Oral 118 120 Other: Voiding Method Toilet # Voids 3 1 # Bowel Movements 2 - Exam PHYSICAL EXAM: VITAL SIGNS: [As above] GENERAL: Alert and oriented 3,Sitting up in bed, no acute distress HEENT: Conjunctivae normal. eyes normal. NECK: Supple, No JVD. CARDIOVASCULAR: S1, S2 regular. No murmur RESPIRATION: Breath sounds diminished in the bases. No rhonchi or crackles. ABDOMEN: Soft, nondistended, nontender to palpation . No guarding. no rigidity .+BS. LEGS: No edema. no swelling NERVOUS SYSTEM: Cranial N 2-12 grossly normal. No focal deficits. Strength and sensation grossly intact. Skin: Warm and dry, no rash - Labs CBC & Chem 7: 03/23/22 05:42 03/23/22 05:42 Labs: Abnormal Lab Results - Last 24 Hours (Table) 03/22/22 03/23/22 03/23/22 Range/Units 15:12 05:42 05:42 WBC 16.0 H (3.8-10.6) k/uL RBC 3.73 L (3.80-5.40) m/uL Hgb 10.5 L (11.4-16.0) gm/dL Hct 33.4 L (34.0-46.0) % Plt Count 466 H (150-450) k/uL Neutrophils # (Manual) 13.70 H (1.3-7.7) k/uL Metamyelocytes # (Man) 0.48 H (0) k/uL Myelocytes # (Manual) 0.32 H (0) k/uL Sodium 136 L (137-145) mmol/L Carbon Dioxide 31 H 32 H (22-30) mmol/L Glucose 130 H 135 H (74-99) mg/dL Calcium 7.8 L 7.5 L (8.4-10.2) mg/dL Total Protein 5.8 L 5.5 L (6.3-8.2) g/dL Albumin 3.1 L 2.9 L (3.5-5.0) g/dL Assessment and Plan Assessment: Abdominal pain with bloody diarrhea in a patient with acute ulcerative colitis exacerbation in a patient with history of Ulcerative colitis. Anxiety Plan: Continue on current medication regime ,monitoring and symptomatic treatment. Maintain IV antibiotics steroids and gentle IV fluid hydration. Advance diet to soft low fiber, low fat. Potential discharge home tomorrow with continued improvement. The impression and plan of care has been dictated as directed. : I performed a history and examination of this patient, discussed the same with the dictator. I agree with the dictator's note ,documented as a scribe. Any additional findings or plans will be noted.
[2022-03-24] MEDS: HYDROmorphone 1 MG/ML 1 ML SYRINGE IVP PRN ×7 (01:56→22:38)
[2022-03-24] MEDS: ONDANSETRON 4 MG/2 ML VIAL IVP PRN (05:01)
[2022-03-24 06:22] LABS: HCT 36.7 % (34.0-46.0); HGB 11.3 gm/dL (11.4-16.0); MCH 27.9 pg (25.0-35.0); MCHC 30.8 g/dL (31.0-37.0); MCV 90.5 fL (80.0-100.0); Mean Platelet Volume 7.4; Platelet Count 511 k/uL (150-450); RBC 4.05 m/uL (3.80-5.40); RDW 14.3 % (11.5-15.5); WBC 19.2 k/uL (3.8-10.6)
[2022-03-24 06:52] LABS: Band Neutrophils % 37 %; Lymphocytes # (M) 1.92 k/uL (1.0-4.8); Metamyelocytes # (M) 1.34 k/uL (0); Metamyelocytes % 7 %; Monocytes # (M) 0.96 k/uL (0-1.0); Myelocytes # (M) 0.38 k/uL (0); Myelocytes % 2 %; Neutrophils % (M) 39 %; Nucleated Red Blood Cells 0 /100 WBC (0-0); Total Cells Counted 200
[2022-03-24 06:53] LABS: Toxic Granulation Present
[2022-03-24] MEDS: metroNIDAZOLE-NS PMX 500 MG in SALINE 1 100ML.BAG IVPB SCH (08:04)
[2022-03-24] MEDS: PANTOPRAZOLE 40 MG/10 ML VIAL IV SCH (08:04)
[2022-03-24] MEDS: methylPREDNISolone SOD SUCCI 40 MG/ML 1 ML VIAL IV SCH ×3 (08:04→23:03)
[2022-03-24] MEDS: SODIUM CHLORIDE 0.9% 1,000 ML IV SCH (11:02)
--- NOTE | 2022-03-24 12:09 | P.PN ---
Subjective Progress Note Date: 03/24/22 CHIEF COMPLAINT: Ulcerative colitis exacerbation HISTORY OF PRESENT ILLNESS: Patient reports that she is starting to feel better today. The frequency of her stools are becoming less. They are still bloody. She denies any nausea vomiting. She is currently on a low fiber diet. Her pain is better controlled. Afebrile. WBC is up from 16-19 patient is on steroids hemoglobin is 11.3 and stable PHYSICAL EXAM: VITAL SIGNS: Reviewed. GENERAL: Well-developed in no acute distress. HEENT: No sclera icterus. Extraocular movements grossly intact. Moist buccal mucosa. Head is atraumatic, normocephalic. ABDOMEN: Soft. mildly distended NEUROLOGIC: Alert and oriented. Cranial nerves II through XII grossly intact. ASSESSMENT: 1. Ulcerative colitis exacerbation PLAN: -Continue supportive care -Continue medical management -Continue IV steroids -Continue low fiber diet -No surgical intervention planned Physician Contour Sander note has been reviewed by physician. Signing provider agrees with the documented findings, assessment, and plan of care. Objective - Vital Signs Vital signs: Vital Signs Temp 98.1 F 03/24/22 08:00 Pulse 61 03/24/22 08:00 Resp 16 03/24/22 08:00 BP 120/79 03/24/22 08:00 Pulse Ox 95 03/24/22 08:00 FiO2 Intake & Output 03/23/22 03/24/22 03/24/22 18:59 06:59 18:59 Intake Total 425 118 Balance 425 118 Intake: Oral 425 118 Other: Voiding Method Toilet Toilet # Voids 3 2 # Bowel Movements 2 - Labs CBC & Chem 7: 03/24/22 05:15 03/23/22 05:42 Labs: Abnormal Lab Results - Last 24 Hours (Table) 03/23/22 03/24/22 Range/Units 05:42 05:15 WBC 19.2 H (3.8-10.6) k/uL Hgb 11.3 L (11.4-16.0) gm/dL MCHC 30.8 L (31.0-37.0) g/dL Plt Count 511 H (150-450) k/uL Neutrophils # (Manual) 13.70 H 14.50 H (1.3-7.7) k/uL Metamyelocytes # (Man) 0.48 H 1.34 H (0) k/uL Myelocytes # (Manual) 0.32 H 0.38 H (0) k/uL
--- NOTE | 2022-03-24 14:47 | P.PN ---
Subjective Progress Note Date: 03/24/22 H&P Date: 03/22/22 Chief Complaint: Worsening abdominal pain, bloody diarrhea This is a 36-year-old female in a return to the ER with worsening abdominal cheng n, bloody diarrhea in a patient with history of ulcerative colitis. Patient reports, she initially was treated in [place] for her ulcerative colitis with last flareup 12 years ago and had been managing with diet alone. Recently had seen GI specialist, Dr. Rashid who ordered labs and started patient on both steroids and oral aminoglycosides, minimal improvement.Patient presented to the ER, initially on 03/19/2022 with similar symptoms, and discharged home on Tylenol #3. Patient returned to the ER as she ran out of her pain medication, worsening symptoms. Reports on no diet intake 5 days; platelets of food, including Pedialyte causes nausea and vomiting. Reporting diarrhea every hour, sometimes bloody. States she has been under a lot of stress at work plus moving and has not been eating well over the last 2 weeks. Afebrile, WBC 16.9, hemoglobin 11.7, platelets 522, potassium 3.1, BUN 6. Creatinine 0.70, magnesium 2. CRP 8.3, ESR 45( both increased from prior labs on the ) . amylase less than 30, lipase 11. UA negative. IV fluid hydration, antibiotics and steroids initiated. No GI services available this week, Surgery consult in place. 03/23/2022 continues on ceftriaxone, IV steroids. Reports abdominal pain last night, none this morning. Reports less bloody watery diarrhea last night, none this morning. Tolerating clear liquid diet this morning with no abdominal cramping, no nausea, no vomiting. Requesting diet advancement. Afebrile, WBC decreased to 16. Hemoglobin 10.5, platelets 466, bicarb 32 renal function stable. Blood sugars controlled. Evaluated by surgery with no surgical intervention planned. 03/24/2022 maintained on IV fluid hydration, IV steroids and antibiotics .yesterday diet advanced to soft low fiber. Reports she feels better today, bms decreasing but still bloody, no nausea or vomiting. Denies abdominal pain. Dilaudid IV push requested prior to getting up to ambulate. Afebrile. Objective - Vital Signs Vital signs: Vital Signs Temp 98.1 F 03/24/22 08:00 Pulse 61 03/24/22 08:00 Resp 16 03/24/22 08:00 BP 120/79 03/24/22 08:00 Pulse Ox 95 03/24/22 08:00 FiO2 Intake & Output 03/23/22 03/24/22 03/24/22 18:59 06:59 18:59 Intake Total 425 118 Balance 425 118 Intake: Oral 425 118 Other: Voiding Method Toilet Toilet # Voids 3 2 # Bowel Movements 2 - Exam PHYSICAL EXAM: VITAL SIGNS: [As above] GENERAL: Alert and oriented 3,Sitting up in bed, no acute distress HEENT: Conjunctivae normal. eyes normal. NECK: Supple, No JVD. CARDIOVASCULAR: S1, S2 regular. No murmur RESPIRATION: Breath sounds diminished in the bases. ABDOMEN: Soft, nondistended, nontender to palpation . No guarding. no rigidity .+BS. LEGS: No edema. no swelling NERVOUS SYSTEM: Cranial N 2-12 grossly normal. No focal deficits. Strength and sensation grossly intact. Skin: Warm and dry, no rash - Labs CBC & Chem 7: 03/24/22 05:15 03/23/22 05:42 Labs: Abnormal Lab Results - Last 24 Hours (Table) 03/23/22 03/24/22 Range/Units 05:42 05:15 WBC 19.2 H (3.8-10.6) k/uL Hgb 11.3 L (11.4-16.0) gm/dL MCHC 30.8 L (31.0-37.0) g/dL Plt Count 511 H (150-450) k/uL Neutrophils # (Manual) 13.70 H 14.50 H (1.3-7.7) k/uL Metamyelocytes # (Man) 0.48 H 1.34 H (0) k/uL Myelocytes # (Manual) 0.32 H 0.38 H (0) k/uL Assessment and Plan Assessment: Abdominal pain with bloody diarrhea in a patient with acute ulcerative colitis exacerbation in a patient with history of Ulcerative colitis. Anxiety Plan: Continue on current medication regime ,monitoring and symptomatic treatment. IV antibiotics were discontinued. Continue steroids and gentle IV fluid hydration. Pain management discussed and patient will use oral agents first. Discharge home tomorrow with continued improvement. The impression and plan of care has been dictated as directed. : I performed a history and examination of this patient, discussed the same with the dictator. I agree with the dictator's note ,documented as a scribe. Any additional findings or plans will be noted.
[2022-03-25] MEDS: HYDROmorphone 1 MG/ML 1 ML SYRINGE IVP PRN ×3 (01:15→08:20)
[2022-03-25] MEDS: SODIUM CHLORIDE 0.9% 1,000 ML IV SCH ×2 (03:53→14:03)
[2022-03-25] MEDS: ONDANSETRON 4 MG/2 ML VIAL IVP PRN ×2 (04:39→21:21)
[2022-03-25] MEDS: PANTOPRAZOLE 40 MG/10 ML VIAL IV SCH (08:21)
[2022-03-25] MEDS: methylPREDNISolone SOD SUCCI 40 MG/ML 1 ML VIAL IV SCH ×2 (08:21→17:03)
[2022-03-25] MEDS: HYDROmorphone 0.5 MG/0.5 ML SYRINGE IVP PRN ×4 (11:52→21:21)
--- NOTE | 2022-03-25 15:09 | P.PN ---
Subjective Progress Note Date: 03/25/22 CHIEF COMPLAINT: Ulcerative colitis exacerbation HISTORY OF PRESENT ILLNESS: The patient reports that she continues to have abdominal pain. She did have a bloody bowel movement last night and a small bloody BM this morning. She does report that she is feeling better than she did on admission. Does not feel ready for discharge quite yet. Stools are less frequent. Afebrile. WBC 16-19.2 hemoglobin 11.3 platelets 511 Patient seen and examined with Dr. Gardner PHYSICAL EXAM: VITAL SIGNS: Reviewed. GENERAL: Well-developed in no acute distress. HEENT: No sclera icterus. Extraocular movements grossly intact. Moist buccal mucosa. Head is atraumatic, normocephalic. ABDOMEN: Soft. mildly distended NEUROLOGIC: Alert and oriented. Cranial nerves II through XII grossly intact. ASSESSMENT: 1. Ulcerative colitis exacerbation PLAN: -Continue supportive care -Continue medical management -Continue IV steroids -Continue low fiber diet -No surgical intervention planned -Patient can be discharged from surgical standpoint when medically cleared -Agree with following up with GI specialist outpatient Physician Cdl Truck Driver note has been reviewed by physician. Signing provider agrees with the documented findings, assessment, and plan of care. Objective - Vital Signs Vital signs: Vital Signs Temp 98.3 F 03/25/22 14:00 Pulse 71 03/25/22 14:00 Resp 16 03/25/22 14:00 BP 124/75 03/25/22 14:00 Pulse Ox 95 03/25/22 14:00 FiO2 Intake & Output 03/24/22 03/25/22 03/25/22 18:59 06:59 18:59 Intake Total 236 340 Balance 236 340 Intake: Oral 236 340 Other: Voiding Method Toilet # Voids 1 1 3 # Bowel Movements 1 1 - Labs CBC & Chem 7: 03/24/22 05:15 03/23/22 05:42
--- NOTE | 2022-03-25 22:09 | P.PN ---
Subjective Progress Note Date: 03/25/22 She feels her pain is improved, she continues to report cramping and pain with bowel movements in addition to blood tinged stool yesterday. No nausea. Objective - Vital Signs Vital signs: Vital Signs Temp 98.0 F 03/25/22 18:42 Pulse 66 03/25/22 18:42 Resp 16 03/25/22 14:00 BP 131/81 03/25/22 18:42 Pulse Ox 97 03/25/22 18:42 FiO2 Intake & Output 03/25/22 03/25/22 03/26/22 06:59 18:59 06:59 Intake Total 340 Balance 340 Intake: Oral 340 Other: Voiding Method Toilet Toilet # Voids 1 0 0 # Bowel Movements 1 1 - Exam Gen: well developed, well nourished, NAD CV: RRR, no murmur Lungs: CTAB Abd: soft, nontender, non distended - Labs CBC & Chem 7: 03/24/22 05:15 03/23/22 05:42 Assessment and Plan Plan: Continue with IV steroids, plan for prednisone taper upon discharge. Continue with low fiber diet. Anticipate discharge in next 24 hours
[2022-03-26] MEDS: HYDROmorphone 0.5 MG/0.5 ML SYRINGE IVP PRN ×7 (00:36→18:46)
[2022-03-26] MEDS: methylPREDNISolone SOD SUCCI 40 MG/ML 1 ML VIAL IV SCH ×3 (00:36→15:39)
[2022-03-26] MEDS: SODIUM CHLORIDE 0.9% 1,000 ML IV SCH ×2 (05:23→15:41)
[2022-03-26] MEDS: PANTOPRAZOLE 40 MG/10 ML VIAL IV SCH (08:39)
--- NOTE | 2022-03-26 15:43 | P.PN ---
Subjective Progress Note Date: 03/26/22 CHIEF COMPLAINT: Ulcerative colitis HISTORY OF PRESENT ILLNESS: The patient is a 36-year-old female with exacerbation of colitis. She still is having bowel movements with bleeding. She is on steroids. ROS: No reports of nausea and vomiting. No bowel movements. No fevers or chills. No new chest pain. No productive sputum. Obesity due to excess calories, BMI 31.9. Has ulcerative colitis. She is on steroids for exacerbation of colitis. PHYSICAL EXAM: VITAL SIGNS: Reviewed CONSTITUTIONAL: Well developed and in no acute distress. EYES: Conjuctivae without sclera icterus. Extraocular movements grossly intact. HEAD, EARS, NOSE, THROAT: Moist buccal mucosa. Head is atraumatic, normocep halic. Hears conversational speech. No nasal drainage. RESPIRATORY: Non-labored respirations and equal bilateral excursions. CARDIOVASCULAR: Palpable 2+ radial pulses. ABDOMEN: No peritonitis. MUSCULOSKELETAL: No gross deformity of the lower extremities noted. No clubbing. No cyanosis. SKIN: Good skin turgor. Well perfused. NEUROLOGIC: Cranial nerves II through XII grossly intact. No focal or lateralizing signs. PSYCH: Appropriate affect. Alert and oriented to person, place and time. REPORT: Colonoscopy in 2020 demonstrates no malignancy with mucosal irregularity for history of ulcerative colitis on Remicade CLINICAL LABS: Reviewed. WBC elevated 16-19.2, leukocytosis. Hemoglobin 10.5- 11.3, anemia IMAGES: CT of the abdomen and pelvis from 03/19/2022 independent review demo nstrates moderate colitis affecting transverse colon descending colon and sigmoid colon. No free fluid or free air. This is my independent interpretation. ASSESSMENT: 1. Ulcerative colitis, exacerbation PLAN: 1. Continue steroids 2. May need transfer to a facility with GI coverage due to exacerbation of ulcerative colitis Objective - Vital Signs Vital signs: Vital Signs Temp 98 F 03/26/22 07:15 Pulse 53 L 03/26/22 07:15 Resp 16 03/26/22 07:15 BP 129/84 03/26/22 07:15 Pulse Ox 93 L 03/26/22 07:15 FiO2 Intake & Output 03/25/22 03/26/22 03/26/22 18:59 06:59 18:59 Intake Total 340 Balance 340 Intake: Oral 340 Other: Voiding Method Toilet # Voids 0 3 # Bowel Movements 1 4 1 - Labs CBC & Chem 7: 03/24/22 05:15 03/23/22 05:42
[2022-03-26] MEDS: ONDANSETRON 4 MG/2 ML VIAL IVP PRN (17:50)
--- NOTE | 2022-03-26 19:10 | P.PN ---
Subjective Progress Note Date: 03/26/22 36-year-old female in a return to the ER with worsening abdominal pain, bloody diarrhea in a patient with history of ulcerative colitis. Patient reports, she initially was treated in [place] for her ulcerative colitis with last flareup 12 years ago and had been managing with diet alone. Recently had seen GI specialist, Dr. Rashid who ordered labs and started patient on both steroids and oral aminoglycosides, minimal improvement.Patient presented to the ER, initially on 03/19/2022 with similar symptoms, and discharged home on Tylenol #3. Patient returned to the ER as she ran out of her pain medication, worsening symptoms. Reports on no diet intake 5 days; platelets of food, including Pedialyte causes nausea and vomiting. Reporting diarrhea every hour, sometimes bloody. States she has been under a lot of stress at work plus moving and has not been eating well over the last 2 weeks. Afebrile, WBC 16.9, hemoglobin 11.7, platelets 522, potassium 3.1, BUN 6. Creatinine 0.70, magnesium 2. CRP 8.3, ESR 45( both increased from prior labs on the ) .amylase less than 30, lipase 11. UA negative. IV fluid hydration, antibiotics and steroids initiated. No GI services available this week, Surgery on board. Objective - Vital Signs Vital signs: Vital Signs Temp 97.5 F L 03/26/22 13:41 Pulse 72 03/26/22 13:41 Resp 16 03/26/22 13:41 BP 111/75 03/26/22 13:41 Pulse Ox 97 03/26/22 13:41 FiO2 Intake & Output 03/25/22 03/26/22 03/26/22 18:59 06:59 18:59 Intake Total 340 118 Balance 340 118 Intake: Oral 340 118 Other: Voiding Method Toilet # Voids 0 3 # Bowel Movements 1 4 1 - Exam PHYSICAL EXAMINATION: GENERAL: The patient is alert and oriented x3, not in any acute distress. Well developed, well nourished. HEENT: Pupils are round and equally reacting to light. EOMI. No scleral icterus. No conjunctival pallor. Normocephalic, atraumatic. No pharyngeal erythema. No thyromegaly. CARDIOVASCULAR: S1 and S2 present. No murmurs, rubs, or gallops. PULMONARY: Chest is clear to auscultation, no wheezing or crackles. ABDOMEN: Soft, nontender, nondistended, normoactive bowel sounds. No palpable organomegaly. MUSCULOSKELETAL: No joint swelling or deformity. EXTREMITIES: No cyanosis, clubbing, or pedal edema. NEUROLOGICAL: Gross neurological examination did not reveal any focal deficits. SKIN: No rashes. - Labs CBC & Chem 7: 03/24/22 05:15 03/23/22 05:42 Assessment and Plan Assessment: Abdominal pain with bloody diarrhea in a patient with acute suspected ulcerative colitis in a patient with history of Ulcerative colitis. Anxiety Uncontrolled pain Plan of care discussed with patient and she is agreeable to switch to oral prednisone and slow taper and discontinuing IV Dilaudid and starting oral [place] 5 mg every 6 hours when necessary - Possible discharge in next 24 hours
[2022-03-26] MEDS: HYDROcodone/APAP 5-325MG 1 EACH TAB PO PRN (21:43)
[2022-03-27] MEDS: methylPREDNISolone SOD SUCCI 40 MG/ML 1 ML VIAL IV SCH ×2 (00:34→09:17)
[2022-03-27] MEDS: HYDROcodone/APAP 5-325MG 1 EACH TAB PO PRN ×2 (03:01→09:14)
[2022-03-27 07:16] VITALS: BP 132/85; PULSE 64; RESP 16; TEMP 98.8
[2022-03-27 09:41] LABS: HCT 32.1 % (37.2-46.3); MCH 28.3 pg (27.0-32.0); MCHC 31.2 g/dL (32.0-37.0); MCV 90.9 fL (80.0-97.0); Mean Platelet Volume 9.9 fL (9.5-12.2); NRBC Per 100 WBC 0.8 /100 WBCS (0.0-0.0); Platelet Count 418 X 10*3/uL (140-440); RBC 3.53 X 10*6/uL (4.10-5.20); RDW 14.3 % (11.5-14.5); WBC 19.88 X 10*3/uL (4.50-10.00)
[2022-03-27 09:58] LABS: African American GFR (CKD) 130.1 (60.0-200.0); Anion Gap 3.1 mmol/L (10.00-18.00); BUN/Creat Ratio 13.57 Ratio (12.00-20.00); Blood Urea Nitrogen 9.5 mg/dL (9.0-27.0); Calcium 7.8 mg/dL (8.7-10.3); Carbon Dioxide 33.9 mmol/L (20.0-27.5); Non-African American GFR(CKD) 112.3 (60.0-200.0); Potassium 4.6 mmol/L (3.5-5.5)
[2022-03-27] MEDS ORDERED: ONDANSETRON 4 MG/2 ML VIAL IVP PRN (10:07)
[2022-03-27] MEDS ORDERED: HYDROmorphone 0.5 MG/0.5 ML SYRINGE IVP PRN (10:08)
[2022-03-27 11:08] LABS: Basophils # (M) 0 X 10*3/uL (0.00-0.10); Eosinophils # (M) 0 X 10*3/uL (0.04-0.35); Lymphocytes # (M) 1.79 X 10*3/uL (0.90-5.00); Metamyelocytes % 4 % (0-0); Myelocytes % 5 % (0-0); Neutrophils # (M) 15.51 X 10*3/uL (2.00-8.90); Neutrophils % (M) 78 %; RBC Morphology NORMAL
== END 2022-03-27 10:25 | disposition left against medical advice (07) | DRG 387 ==
LOC: EC 06:11 → 5NMEDONC 08:24 → 6NMEDSUR 14:15
PROVIDERS: ADMIT Family Medicine; ATTEND Family Medicine
DX: K51.90 Ulcerative colitis, unspecified, without complications (principal); F41.9 Anxiety disorder, unspecified; E66.09 Other obesity due to excess calories; Z53.29 Procedure and treatment not carried out because of patient's decision for other reasons; E86.0 Dehydration; E87.6 Hypokalemia; Z79.52 Long term (current) use of systemic steroids; Z68.31 Body mass index [BMI] 31.0-31.9, adult; Z88.1 Allergy status to other antibiotic agents; Z88.2 Allergy status to sulfonamides; Z88.8 Allergy status to other drugs, medicaments and biological substances; Z98.51 Tubal ligation status
CPT/HCPCS: 36415; 80048; 80053; 81001; 81025; 82150; 83605; 83690; 83735; 85025; 85652; 86140; 96361; 96365; 96367; 96375; 99285